=== PATIENT | female | born 1960 | race Caucasian/White ===

== ENCOUNTER 2018-03-06 01:34 | Emergency (ER) | payer OTHER ==
[~2018-03-06] VITALS: Ht 162.6 cm; Wt 71.5 kg
[~2018-03-06 01:34] MED LIST: BLACK COHOSH40 MG PO; ERYTHROMYCIN O3.5 GM RIGHT EYE; FLEXERIL10 MG PO; LEVAQUIN500 MG PO; LEVOFLOXACIN500 MG PO; MOTRIN600 MG PO; PANTOPRAZOLE SO40 MG PO; PERCOCET 5/31 TABLET PO; TESSALON PERLE100 MG PO; TORADOL10 MG PO; TYLENOL EXTRA500 MG PO; TYLENOL WITH C1 EACH PO
[2018-03-06 02:03] LABS: HEMATOCRIT 43.1 % (36.0-46.0); HEMOGLOBIN 14.8 G/DL (11.9-15.5); MCH 31.7 PG (29.0-34.0); MCHC 34.3 G/DL (30.0-36.0); MCV 92.3 FL (83-99); PLATELET COUNT 236 K/uL (156-360); RBC DIS.WIDTH-CV 12.8 % (11.8-14.6); RBC DIS.WIDTH-SD 43.6 % (39-53); RED BLOOD COUNT 4.67 M/uL (3.80-5.20); WHITE BLOOD COUNT 7.5 K/uL (4.1-10.2)
[2018-03-06 02:28] LABS: CHLORIDE 106 mEq/L (99-109); POTASSIUM 4.5 mEq/L (3.7-5.4); SODIUM 142 mEq/L (136-147)
[2018-03-06 02:29] LABS: GLUCOSE 91 mg/dL (70-99)
[2018-03-06 02:33] LABS: CREATININE 0.9 mg/dL (0.6-1.3); GFR ESTIMATE (CALCULATED) > 59 mL/min/
[2018-03-06 02:34] LABS: UREA NITROGEN (BUN) 16 mg/dL (9-23)
[2018-03-06 03:30] LABS: APPEARANCE CLEAR ((CLEAR)); BILIRUBIN NEGATIVE; BLOOD NEGATIVE; COLOR YELLOW ((YELLOW)); GLUCOSE (STRIP) NEGATIVE; KETONES NEGATIVE; LEUKOCYTES MODERATE; NITRITE NEGATIVE; PROTEIN (STRIP) NEGATIVE; UROBILINOGEN 0.2 MG/DL (0.2-1.0)
[2018-03-06 03:48] LABS: BACTERIA NONE SEEN /HPF; EPITHELIAL CELLS RARE /HPF; MUCUS NONE SEEN /LPF; RED BLOOD CELLS 0-5 /HPF (0-5); UCUL ADDED? YES
[2018-03-06] MEDS ORDERED: LIDODERM 5% P1 PATCH TD (04:18)
[2018-03-06] MEDS ORDERED: FLEXERIL10 MG PO (04:18)
[2018-03-06] MEDS ORDERED: PERCOCET 5/31 TABLET PO (04:18)
[2018-03-06 04:35] VITALS: BP 100/70
== END 2018-03-06 04:37 | disposition home or self-care (01) ==
LOC: EME 01:34
DX: M25.551 Pain in right hip (principal); M54.9 Dorsalgia, unspecified; N39.0 Urinary tract infection, site not specified; F17.200 Nicotine dependence, unspecified, uncomplicated; Z98.51 Tubal ligation status
CPT/HCPCS: 73502; 80048; 81003; 85027; 87086; J1885